=== PATIENT | female | born 1945 | race Caucasian/White ===

== ENCOUNTER → 2023-10-08 09:03 | Outpatient (REF) | payer OTHER, SELFPAY | LOC: HWRAD 09:03 | PROVIDERS: ATTENDING PHYSICIAN Nurse Practitioner Adult Health | DX: Z78.0 Asymptomatic menopausal state (principal) | CPT/HCPCS: 77080 ==

== ENCOUNTER → 2024-01-02 15:34 | Outpatient (REF) | payer MEDICARE, OTHER, SELFPAY | LOC: HWRCS 15:34 | PROVIDERS: ATTENDING PHYSICIAN Internal Medicine Cardiovascular Disease; FAMILY PHYSICIAN Nurse Practitioner Adult Health | DX: I34.0 Nonrheumatic mitral (valve) insufficiency (principal) | CPT/HCPCS: 93306 ==

== ENCOUNTER 2024-01-09 12:53 | Outpatient (RCR) | payer MEDICARE, OTHER, SELFPAY | END 2024-01-09 23:59 | disposition home or self-care (01) | LOC: RPT 12:53 | PROVIDERS: ATTENDING PHYSICIAN Nurse Practitioner Adult Health | DX: G57.02 Lesion of sciatic nerve, left lower limb (principal); Z73.6 Limitation of activities due to disability; R20.2 Paresthesia of skin; M81.0 Age-related osteoporosis without current pathological fracture | CPT/HCPCS: 97010; 97110; 97140; 97161 ==

== ENCOUNTER 2024-02-11 11:54 | Outpatient (RCR) | payer MEDICARE, OTHER, SELFPAY | END 2024-02-11 23:59 | disposition home or self-care (01) | LOC: RPT 11:54 | PROVIDERS: ATTENDING PHYSICIAN Nurse Practitioner Adult Health | DX: G57.02 Lesion of sciatic nerve, left lower limb (principal); Z73.6 Limitation of activities due to disability; R20.2 Paresthesia of skin; M81.0 Age-related osteoporosis without current pathological fracture | CPT/HCPCS: 97010; 97110; 97140; 97530 ==

== ENCOUNTER 2024-02-26 11:46 | Outpatient (RCR) | payer MEDICARE, OTHER, SELFPAY | END 2024-02-26 23:59 | disposition home or self-care (01) | LOC: RPT 11:46 | PROVIDERS: ATTENDING PHYSICIAN Nurse Practitioner Adult Health | DX: G57.02 Lesion of sciatic nerve, left lower limb (principal); Z73.6 Limitation of activities due to disability; R20.2 Paresthesia of skin; M81.0 Age-related osteoporosis without current pathological fracture | CPT/HCPCS: 97110; 97140 ==

== ENCOUNTER → 2024-12-02 13:34 | Outpatient (REF) | payer MEDICARE, OTHER, SELFPAY | LOC: HWRAD 13:34 | PROVIDERS: ATTENDING PHYSICIAN Nurse Practitioner Adult Health | DX: E04.1 Nontoxic single thyroid nodule (principal) | CPT/HCPCS: 76536 ==